=== PATIENT | male | born 1945 | race Caucasian/White ===

== ENCOUNTER 2022-01-08 08:24 | Inpatient (IN) ==
[2022-01-08] MEDS ORDERED: Isovue-370 500 ML BOTTLE IVP ONE (08:30)
[2022-01-08] MEDS ORDERED: 0.9 % Sodium Chloride 500 ML IVC ONE (08:30)
[2022-01-08] MEDS ORDERED: 0.9 % Sodium Chloride 1,000 ML ONE (08:33)
[2022-01-08] MEDS ORDERED: Ondansetron 4 MG/2 ML VIAL ONE ×2 (08:33→09:36)
[2022-01-08] MEDS: Ondansetron 4 MG/2 ML VIAL IVP ONE ×3 (08:38→19:04)
[2022-01-08 08:54] LABS: Basophils # 0.1 K/mcL (0.0-0.2); Basophils % 0.7 %; Eosinophils # 0.2 K/mcL (0.0-0.6); Eosinophils % 1.6 %; Hematocrit 41.9 % (37.5-50.1); Immature Granulocytes % 0.2 % (0-4); Lymphocytes # 4.9 K/mcL (0.6-4.6); Lymphocytes % 40.5 %; Mean Corpuscular HGB Conc 33.4 g/dL (31.6-35.5); Mean Corpuscular Hemoglobin 30.8 pg (28.0-33.3); Mean Corpuscular Volume 92.1 fL (83.0-100.0); Mean Platelet Volume 9.3 fL (9.4-12.4); Monocytes # 1.1 K/mcL (0.0-1.3); Monocytes % 9.4 %; Neutrophils # 5.8 K/mcL (1.6-8.9); Platelet Count 235 K/mcL (140-400); Red Blood Count 4.55 M/mcL (4.19-5.50); Segmented Neutrophils % 47.6 %; White Blood Count 12.2 K/mcL (4.3-11.1)
[2022-01-08] MEDS ORDERED: *HR* Labetalol 20 MG/4 ML SYRINGE IVP ONE ×6 (08:59→09:47)
[2022-01-08 09:01] LABS: Prothrombin Time 11.2 Seconds (9.4-12.1)
[2022-01-08] MEDS ORDERED: niCARdipine 20 MG/200 ML MLS IVC ONE ×3 (09:11→12:52)
[2022-01-08 09:14] LABS: BUN/Creatinine Ratio 19 (6-26); Blood Urea Nitrogen 23 mg/dL (8-23); Calcium 9.6 mg/dL (8.6-10.3); Carbon Dioxide 21 mEq/L (23-29); Chloride 105 mEq/L (98-107); Glucose 177 mg/dL (70-105); Osmolality,Calculated 296 (280-300); Potassium 3.4 mEq/L (3.5-5.1); Sodium 139 mEq/L (136-145); Troponin I < 0.03 ng/mL (< 0.04); eGFR For African Americans > 60 (> 60); eGFR For Non-African Americans 57 (> 60)
[2022-01-08] MEDS ORDERED: Ondansetron 4 MG/2 ML VIAL IVP ONE (09:36)
[2022-01-08] MEDS ORDERED: Metoclopramide 10 MG/2 ML VIAL IVP ONE (10:29)
[2022-01-08] MEDS ORDERED: Naloxone 0.4 MG/ML INJ IVP PRN (10:59)
[2022-01-08] MEDS ORDERED: Acetaminophen 325 MG TABLET PO PRN (10:59)
[2022-01-08] MEDS ORDERED: *HR* OxyCODONE Immed Rel 5 MG TABLET PO PRN (10:59)
[2022-01-08] MEDS ORDERED: 0.9 % Sodium Chloride 500 ML ONE (11:52)
[2022-01-08] MEDS ORDERED: Lidocaine -MPF 1% 5 ML AMPUL ONE (11:56)
[2022-01-08] MEDS ORDERED: Lidocaine 1% 20 ML MDV INFILT ONE (12:15)
[2022-01-08] MEDS: niCARdipine 20 MG/200 ML MLS IVC SCH ×5 (14:12→22:37)
[2022-01-08] MEDS ORDERED: Prochlorperazine 10 MG/2 ML VIAL IVP PRN (15:38)
[2022-01-08] MEDS: Famotidine 20 MG/2 ML VIAL IVP SCH ×2 (15:45→19:16)
[2022-01-08] MEDS: Ondansetron 4 MG/2 ML VIAL IVP PRN ×2 (15:46→21:03)
[2022-01-08] MEDS ORDERED: Perflutren Lipid Microsphere 1.3 ML in 0.9 % Sodium Chloride 8.7 ML IVP PRN (16:17)
[2022-01-08] MEDS: *HR* Heparin 5,000 UNIT/ML VIAL SQ SCH (18:07)
[2022-01-08] MEDS ORDERED: Albumin Human 5% 12.5 GM/250 ML IV.SOLN IVPB ONE ×2 (19:29→23:42)
[2022-01-08 20:24] LABS: ABG Ionized Calcium 1.15 mmol/L (1.15-1.35)
[2022-01-08 21:18] LABS: Alanine Aminotransferase 18 Units/L (7-52); Albumin 3.8 g/dL (3.5-5.7); Albumin/Globulin Ratio 1.5 (1.1-2.2); Alkaline Phosphatase 76 Units/L (34-104); Aspartate Amino Transferase 13 Units/L (13-39); BUN/Creatinine Ratio 21 (6-26); Bilirubin,Direct 0.1 mg/dL (0.0-0.2); Bilirubin,Indirect 0.8 mg/dL (0.0-1.0); Bilirubin,Total 0.9 mg/dL (0.3-1.0); Blood Urea Nitrogen 29 mg/dL (8-23); Calcium 9.1 mg/dL (8.6-10.3); Carbon Dioxide 20 mEq/L (23-29); Chloride 105 mEq/L (98-107); Globulin 2.5 g/dL (2.4-3.5); Glucose 158 mg/dL (70-105); Osmolality,Calculated 293 (280-300); Potassium 4.5 mEq/L (3.5-5.1); Sodium 137 mEq/L (136-145); Total Protein 6.3 g/dL (6.4-8.9); eGFR For African Americans > 60 (> 60); eGFR For Non-African Americans 51 (> 60)
[2022-01-09] MEDS: niCARdipine 20 MG/200 ML MLS IVC SCH ×6 (00:25→10:09)
[2022-01-09 03:21] LABS: Basophils % 0.1 %; Hematocrit 34.3 % (37.5-50.1); Immature Granulocytes % 0.2 % (0-4); Lymphocytes # 1.1 K/mcL (0.6-4.6); Lymphocytes % 10.2 %; Mean Corpuscular HGB Conc 33.2 g/dL (31.6-35.5); Mean Corpuscular Hemoglobin 30.7 pg (28.0-33.3); Mean Corpuscular Volume 92.5 fL (83.0-100.0); Mean Platelet Volume 9.2 fL (9.4-12.4); Monocytes # 0.7 K/mcL (0.0-1.3); Neutrophils # 9.2 K/mcL (1.6-8.9); Platelet Count 171 K/mcL (140-400); Red Blood Count 3.71 M/mcL (4.19-5.50); Red Cell Distribution Width 13.3 % (11.5-14.5); Segmented Neutrophils % 83.5 %
[2022-01-09 03:28] LABS: Hemoglobin 11.4 g/dL (12.9-16.9)
[2022-01-09 03:30] LABS: VBG Ionized Calcium 1.15 mmol/L (1.15-1.35)
[2022-01-09 03:41] LABS: Alanine Aminotransferase 14 Units/L (7-52); Albumin 3.7 g/dL (3.5-5.7); Albumin/Globulin Ratio 1.7 (1.1-2.2); Alkaline Phosphatase 63 Units/L (34-104); Aspartate Amino Transferase 11 Units/L (13-39); BUN/Creatinine Ratio 23 (6-26); Bilirubin,Total 0.8 mg/dL (0.3-1.0); Blood Urea Nitrogen 29 mg/dL (8-23); Calcium 9.3 mg/dL (8.6-10.3); Carbon Dioxide 20 mEq/L (23-29); Chloride 107 mEq/L (98-107); Globulin 2.2 g/dL (2.4-3.5); Glucose 128 mg/dL (70-105); Magnesium 1.8 mg/dL (1.6-2.6); Osmolality,Calculated 293 (280-300); Potassium 3.9 mEq/L (3.5-5.1); Sodium 138 mEq/L (136-145); Total Protein 5.9 g/dL (6.4-8.9); eGFR For African Americans > 60 (> 60); eGFR For Non-African Americans 55 (> 60)
[2022-01-09] MEDS: Famotidine 20 MG/2 ML VIAL IVP SCH ×2 (05:28→18:41)
[2022-01-09] MEDS: *HR* Heparin 5,000 UNIT/ML VIAL SQ SCH ×2 (05:28→18:11)
[2022-01-09] MEDS ORDERED: Metoprolol XL (24 HR) Succ 50 MG TAB.ER.24H PO SCH (11:15)
[2022-01-09] MEDS ORDERED: Valsartan 80 MG TABLET PO SCH (11:30)
[2022-01-09] MEDS ORDERED: *HR* LORazepam 2 MG/ML VIAL IVP ONE (16:15)
[2022-01-09] MEDS: Dexmedetomidine HCl 400 MCG/100 ML MLS IVC SCH ×2 (17:10→23:26)
[2022-01-09] MEDS: Valsartan 80 MG TABLET PO SCH (20:44)
[2022-01-10] MEDS: Nitroprusside 50 MG in D5% in Water 250 ML IVC SCH ×2 (01:13→14:52)
[2022-01-10 04:11] LABS: VBG Ionized Calcium 1.19 mmol/L (1.15-1.35)
[2022-01-10 04:33] LABS: Basophils # 0.1 K/mcL (0.0-0.2); Basophils % 0.3 %; Eosinophils % 0.2 %; Hematocrit 35.8 % (37.5-50.1); Hemoglobin 11.8 g/dL (12.9-16.9); Immature Granulocytes % 0.4 % (0-4); Lymphocytes # 1.1 K/mcL (0.6-4.6); Lymphocytes % 7.1 %; Mean Corpuscular Hemoglobin 31.2 pg (28.0-33.3); Mean Corpuscular Volume 94.7 fL (83.0-100.0); Mean Platelet Volume 9.2 fL (9.4-12.4); Monocytes # 1.3 K/mcL (0.0-1.3); Monocytes % 8.5 %; Neutrophils # 12.6 K/mcL (1.6-8.9); Platelet Count 189 K/mcL (140-400); Red Blood Count 3.78 M/mcL (4.19-5.50); Segmented Neutrophils % 83.5 %; White Blood Count 15.1 K/mcL (4.3-11.1)
[2022-01-10 04:52] LABS: Alanine Aminotransferase 13 Units/L (7-52); Albumin 3.5 g/dL (3.5-5.7); Albumin/Globulin Ratio 1.7 (1.1-2.2); Alkaline Phosphatase 69 Units/L (34-104); Aspartate Amino Transferase 13 Units/L (13-39); BUN/Creatinine Ratio 18 (6-26); Bilirubin,Total 0.9 mg/dL (0.3-1.0); Blood Urea Nitrogen 19 mg/dL (8-23); Calcium 8.6 mg/dL (8.6-10.3); Carbon Dioxide 26 mEq/L (23-29); Chloride 106 mEq/L (98-107); Globulin 2.1 g/dL (2.4-3.5); Glucose 123 mg/dL (70-105); Magnesium 1.7 mg/dL (1.6-2.6); Osmolality,Calculated 286 (280-300); Phosphorous 3.2 mg/dL (2.7-4.5); Potassium 4.5 mEq/L (3.5-5.1); Sodium 136 mEq/L (136-145); Total Protein 5.6 g/dL (6.4-8.9); eGFR For African Americans > 60 (> 60); eGFR For Non-African Americans > 60 (> 60)
[2022-01-10] MEDS: *HR* Heparin 5,000 UNIT/ML VIAL SQ SCH ×2 (05:07→17:43)
[2022-01-10] MEDS: Famotidine 20 MG/2 ML VIAL IVP SCH ×2 (05:07→18:19)
[2022-01-10] MEDS: Dexmedetomidine HCl 400 MCG/100 ML MLS IVC SCH ×2 (06:26→13:41)
[2022-01-10] MEDS: Valsartan 80 MG TABLET PO SCH (08:21)
[2022-01-10 11:07] VITALS: TEMP 97.7
[2022-01-10] MEDS: carvediloL 6.25 MG TABLET PO SCH ×2 (12:37→18:19)
[2022-01-10] MEDS ORDERED: *HR* Heparin 10,000 UNIT/10 ML VIAL ONE (16:40)
[2022-01-10] MEDS ORDERED: Heparin 1,000 UNITS/500 mL 500 ML ONE (16:40)
[2022-01-10] MEDS ORDERED: ISOVUE-370 200 ML INFUS..BTL ONE (16:40)
[2022-01-10] MEDS ORDERED: Nitroglycerin 1,000 MCG/5 ML VIAL IV ONE (16:41)
[2022-01-10] MEDS ORDERED: 0.9 % Sodium Chloride 2,000 ML ONE (16:41)
[2022-01-10 18:03] VITALS: PULSE 98; O2SAT 96
[2022-01-10 18:37] VITALS: BP 137/65
[2022-01-11] MEDS ORDERED: Isovue-370 500 ML BOTTLE IVP ONE (12:00)
== END 2022-01-10 19:40 | disposition short-term general hospital (02) | DRG 299 ==
LOC: EMEROOARM 08:24 → ICNU 10:59
PROVIDERS: ADMIT Family Medicine; ATTEND Family Medicine